=== PATIENT | female | born 1975 | race Caucasian/White ===

== ENCOUNTER 2017-04-10 16:10 | Emergency (ER) | payer OTHER ==
[~2017-04-10] VITALS: Wt 54.4 kg
[~2017-04-10 16:10] MED LIST: MOTRIN800 MG PO; VICODIN 5/500 505 MG; VICODIN 500 MG-1 TAB PO
[2017-04-10] MEDS ORDERED: BACTRIM DS 8001 TA1 PO (17:01)
== END 2017-04-10 17:14 | disposition home or self-care (01) ==
LOC: ED 16:10
DX: L02.414 Cutaneous abscess of left upper limb (principal); F17.200 Nicotine dependence, unspecified, uncomplicated

== ENCOUNTER 2017-05-18 13:52 | Emergency (ER) | payer OTHER ==
[~2017-05-18] VITALS: Ht 162.5 cm; Wt 56.7 kg
[~2017-05-18 13:52] MED LIST changes: +BACTRIM DS 8001 TA1 PO
[2017-05-18] MEDS ORDERED: PREDNISONE10 MG PO (14:51)
[2017-05-18] MEDS ORDERED: KENALOG 0.1%80 GM T (14:52)
== END 2017-05-18 15:05 | disposition home or self-care (01) ==
LOC: ED 13:52
DX: L25.5 Unspecified contact dermatitis due to plants, except food (principal); F17.200 Nicotine dependence, unspecified, uncomplicated

== ENCOUNTER 2018-08-06 16:08 | Emergency (ER) | payer OTHER ==
[~2018-08-06] VITALS: Ht 162.5 cm; Wt 56.7 kg
[~2018-08-06 16:08] MED LIST changes: +KENALOG 0.1%80 GM T; +PREDNISONE10 MG PO
[2018-08-06 16:35] LABS: HEMATOCRIT 37.6 % (37.0-47.0); HEMOGLOBIN 12.2 g/dl (12.0-16.0); MEAN CELL VOLUME 113.9 fl (81.0-99.0); MEAN CORPUSCULAR HGB CONC 32.4 g/dl (33.0-37.0); MEAN PLATELET VOLUME 10.1 fl (9.6-12.3); PLATELET COUNT AUTOMATED 283 10*3/uL (130-400); RED CELL DISTRI WIDTH 11.7 % (0-14.5); WHITE BLOOD COUNT 14.9 10*3/uL (4.8-10.8)
[2018-08-06 16:49] LABS: ALBUMIN 3.9 gm/dl (3.1-4.5); ALKALINE PHOSPHATASE 77 U/L (45-117); BUN 9 mg/dl (7-24); CHLORIDE 107 mmol/L (98-107); POTASSIUM 4.1 mmol/L (3.5-5.1); SGOT/AST 10 IU/L (3-35); SGPT/ALT 15 U/L (12-78); SODIUM 139 mmol/L (136-145); TOTAL PROTEIN 7.5 gm/dL (6.4-8.2)
[2018-08-06 16:52] LABS: BETA-HCG, QUANT < 1.0 mIU/mL (1-3)
[2018-08-06 16:53] LABS: BILIRUBIN NEGATIVE (NEGATIVE); BLOOD NEGATIVE (NEGATIVE); CLARITY CLEAR (CLEAR); COLOR YELLOW (YELLOW); GLUCOSE NEGATIVE (NEGATIVE); KETONE NEGATIVE (NEGATIVE); LEUKO ESTERASE TRACE (NEGATIVE); NITRITE NEGATIVE (NEGATIVE); SPECIFIC GRAVITY >= 1.030 (1.005-1.030); UROBILINOGEN 0.2 E.U./dl (0.2-1.0)
[2018-08-06 16:55] LABS: BASOPHILS 1 % (0-1); TOTAL CELLS COUNTED 100 #CELLS
[2018-08-06 16:56] LABS: PLATELET SUFFICIENCY NORMAL (NORMAL)
[2018-08-06 16:58] LABS: BACTERIA 2+; EPITHELIAL CELLS 16-20; RBC 0-2 rbc/hpf (0-2)
[2018-08-06 16:59] LABS: CALCIUM OXALATE CRYSTALS 1+; MUCOUS TRACE
[2018-08-06] MEDS ORDERED: IBU800 MG PO (21:23)
== END 2018-08-06 21:25 | disposition home or self-care (01) ==
LOC: ED 16:08
PROVIDERS: Emergency Medicine
DX: N83.291 Other ovarian cyst, right side (principal); Z98.51 Tubal ligation status

== ENCOUNTER 2020-08-16 15:10 | Emergency (ER) | payer OTHER ==
[~2020-08-16] VITALS: Wt 52.2 kg
[~2020-08-16 15:10] MED LIST changes: +IBU800 MG PO
[2020-08-16] MEDS ORDERED: CYCLOBENZAPRINE10 MG PO (21:03)
[2020-08-16] MEDS ORDERED: KETOROLAC10 MG PO (21:03)
[2020-08-16] MEDS ORDERED: NORCO 5-325 TA1 EACH PO (21:03)
== END 2020-08-16 21:25 | disposition home or self-care (01) ==
LOC: ED 15:10
DX: S20.211A Contusion of right front wall of thorax, initial encounter (principal); R07.89 Other chest pain; R10.9 Unspecified abdominal pain; V80.010A Animal-rider injured by fall from or being thrown from horse in noncollision accident, initial encounter; Y93.89 Activity, other specified; Y92.89 Other specified places as the place of occurrence of the external cause; Y99.8 Other external cause status

== ENCOUNTER 2022-04-14 11:19 | Emergency (ER) | payer OTHER ==
[~2022-04-14] VITALS: Wt 52.2 kg
[~2022-04-14 11:19] MED LIST changes: +CYCLOBENZAPRINE10 MG PO; +KETOROLAC10 MG PO; +NORCO 5-325 TA1 EACH PO
== END 2022-04-14 13:30 | disposition left against medical advice (07) ==
LOC: ED 11:19
DX: Z53.21 Procedure and treatment not carried out due to patient leaving prior to being seen by health care provider (principal)

== ENCOUNTER 2022-04-28 06:30 | Emergency (ER) | payer OTHER ==
[2022-04-28] MEDS ORDERED: SEPTDS PO (06:46)
== END 2022-04-28 07:03 | disposition home or self-care (01) ==
LOC: ED 06:30
DX: L30.9 Dermatitis, unspecified (principal); L02.414 Cutaneous abscess of left upper limb; Z98.51 Tubal ligation status

== ENCOUNTER → 2022-05-03 | Outpatient (CLI) | payer OTHER ==
[~2022-05-03] MED LIST changes: +SEPTDS PO
[2022-05-03 11:55] LABS: HEMATOCRIT 41.9 % (37.0-47.0); MEAN CELL VOLUME 112.3 fl (81.0-99.0); MEAN CORPUSCULAR HGB CONC 32.9 g/dl (33.0-37.0); MEAN PLATELET VOLUME 10.3 fl (9.6-12.3); PLATELET COUNT AUTOMATED 338 10*3/uL (130-400); RED BLOOD COUNT 3.73 10*6/uL (4.10-5.10); RED CELL DISTRI WIDTH 11.2 % (0-14.5); WHITE BLOOD COUNT 6.8 10*3/uL (4.8-10.8)
[2022-05-03 11:56] LABS: MANUAL DIFF REFLEX YES
[2022-05-03 12:16] LABS: ATYPICAL LYMPHS 2 % (0-0); PLATELET SUFFICIENCY NORMAL (NORMAL); POLYCHROMASIA SLIGHT; TOTAL CELLS COUNTED 100 #CELLS
[2022-05-03 12:18] LABS: ALKALINE PHOSPHATASE 79 U/L (45-117); BUN 11 mg/dl (7-24); CHLORIDE 108 mmol/L (98-107); CHOLESTEROL 200 mg/dL (<200); CREATININE 0.72 mg/dL (0.55-1.02); LDL CHOLESTEROL 106 mg/dL (9-159); POTASSIUM 4.5 mmol/L (3.5-5.1); SGOT/AST 14 IU/L (3-35); SGPT/ALT 18 U/L (12-78); SODIUM 136 mmol/L (136-145); TOTAL PROTEIN 7.4 gm/dL (6.4-8.2); TRIGLYCERIDES 129 mg/dl (<150)
== END | disposition home or self-care (01) ==
LOC: RESCLI 09:50
PROVIDERS: Internal Medicine; ATTEND Psychiatry & Neurology Neurology
DX: L30.9 Dermatitis, unspecified (principal); Z12.31 Encounter for screening mammogram for malignant neoplasm of breast; Z00.00 Encounter for general adult medical examination without abnormal findings; Z79.899 Other long term (current) drug therapy; R53.83 Other fatigue; F32.A Depression, unspecified